=== PATIENT | male | born 1940 | race Caucasian/White ===

== ENCOUNTER 2021-10-28 11:32 | Outpatient (CLI) | payer MEDICARE, BC | END 2021-10-28 11:33 | disposition home or self-care (01) | LOC: CSHLAB 11:32 | PROVIDERS: ATTEND Internal Medicine Critical Care Medicine | DX: Z20.822 Contact with and (suspected) exposure to COVID-19 (principal) | CPT/HCPCS: 87811 ==

== ENCOUNTER 2021-11-02 15:10 | Outpatient (CLI) | payer MEDICARE, BC | END 2021-11-02 15:11 | disposition home or self-care (01) | LOC: CSHCP 15:10 | PROVIDERS: ATTEND Internal Medicine Critical Care Medicine | DX: J44.9 Chronic obstructive pulmonary disease, unspecified (principal) | CPT/HCPCS: 94060; 94726; 94729; 94760 ==